=== PATIENT | female | born 1990 | race Caucasian/White ===

== ENCOUNTER 2017-12-03 19:06 | Emergency (ER) | payer MEDICAID ==
--- NOTE | 2017-12-03 20:17 | NUR ---
CALLED FOR PT NO ANSWER
--- NOTE | 2017-12-03 20:31 | NUR ---
CALLED FOR PT NO ANSWER [facility]BT
== END 2017-12-03 20:33 | disposition left against medical advice (07) ==
LOC: ER 19:08
DX: Z53.21 Procedure and treatment not carried out due to patient leaving prior to being seen by health care provider (principal)